=== PATIENT | female | born 1985 | race Caucasian/White ===

== ENCOUNTER 2019-05-06 05:27 | Day surgery (SDC) | payer BC ==
[2019-05-04 16:30] LABS: BASOPHILS % (AUTO) 0.6 % (0-1); EOSINOPHILS # (AUTO) 0.1 X10'3 (0-0.9); EOSINOPHILS % (AUTO) 1.4 % (0-6); LYMPHOCYTES # (AUTO) 1.4 X10'3 (1.1-4.8); MEAN CORPUSCULAR HEMOGLOBIN 31.2 PG (27.0-31.0); MEAN CORPUSCULAR HGB CONC 34.6 g/dL (33.0-36.5); MEAN CORPUSCULAR VOLUME 90.4 FL (78-98); MEAN PLATELET VOLUME 7.9 FL (7.4-10.4); MONOCYTES # (AUTO) 0.3 X10'3 (0-0.9); MONOCYTES % (AUTO) 6.6 % (2-12); NEUTROPHILS # (AUTO) 2.4 X10'3 (1.8-7.7); NEUTROPHILS % (AUTO) 57.4 % (42-75); PRE OP HEMOGLOBIN 13.8 g/dL (12.0-16.0); PRE OP PLATELET COUNT 171 X10'3 (140-440); RED BLOOD COUNT 4.43 X10'6 (4.20-5.60)
[2019-05-04 16:46] LABS: ALBUMIN 3.9 G/DL (3.4-5.0); ALBUMIN/GLOBULIN RATIO 1.3 (1.1-1.5); ALKALINE PHOSPHATASE 65 IU/L (46-116); BLOOD UREA NITROGEN 10 MG/DL (7-18); BUN/CREATININE RATIO 12.7 (6.6-38.0); CALCIUM 9.5 MG/DL (8.5-10.1); CHLORIDE 103 MMOL/L (99-107); CREATININE 0.79 MG/DL (0.40-0.90); PRE OP ALT 15 U/L (30-65); PRE OP ANION GAP 4 (8-16); PRE OP AST 8 U/L (10-37); PRE OP BILIRUB, TOTAL 0.4 MG/DL (0.0-1.0); PRE OP GLUCOSE 86 MG/DL (70-104); PRE OP POTASSIUM 4.2 MMOL/L (3.4-5.1); PRE OP SODIUM 138 MMOL/L (135-145); TOTAL CARBON DIOXIDE 30.8 MMOL/L (24-32); TOTAL PROTEIN 6.9 G/DL (6.4-8.2); eGFR 82 ML/MIN
[2019-05-04 17:03] LABS: HCG SERUM QL NEGATIVE
[~2019-05-06] VITALS: Ht 157.5 cm; Wt 73.0 kg
[2019-05-06] VITALS (8 sets, daily range): BP systolic 98–110; BP diastolic 45–64
[~2019-05-06 05:27] MED LIST: CHOL10002 PO; ESCI5TAB PO; LORA10TA65 PO
[2019-05-06] MEDS ORDERED: famotidine 20mg tablet PO ONE (05:30)
[2019-05-06] MEDS ORDERED: ceFOXitin sod/dextrose 2g/50ml 50 ML IV ONE (05:30)
[2019-05-06] MEDS ORDERED: ringers solution, lacted 1,000 ML IV SCH ×2 (05:30→08:24)
[2019-05-06] MEDS ORDERED: LIDOcaine 1% (10mg/ml) 2ml vial ONE (06:15)
[2019-05-06] MEDS ORDERED: BUPIVAcaine/PF 2.5 mg/ml (0.25%) 30ml vial ONE (06:52)
[2019-05-06] MEDS ORDERED: epiNEPHrine 1 mg/ml inj ONE (06:52)
[2019-05-06] MEDS ORDERED: fentaNYL/PF 50MCG/1 ML 2ML syringe ONE (07:31)
[2019-05-06] MEDS ORDERED: midazolam 2 mg/2 ml injection ONE (07:31)
[2019-05-06] MEDS ORDERED: rocuronium 10mg/ml inj IV ONE (07:33)
[2019-05-06] MEDS ORDERED: propofol inj 20 ML IV ONE (07:33)
[2019-05-06] MEDS ORDERED: dexamethasone sod phosphate 4mg/ml inj. ONE (07:43)
[2019-05-06] MEDS ORDERED: acetaminophen 1,000mg/100ml IV 100 ML IV ONE (07:59)
[2019-05-06] MEDS ORDERED: ketorolac trometh. 30mg/ml inj. ONE (07:59)
[2019-05-06] MEDS ORDERED: ondansetron/PF 4mg/2ml inj ONE (07:59)
[2019-05-06] MEDS ORDERED: neostigmine methylsulfate 1 MG/ML 10ml vial ONE (08:01)
[2019-05-06] MEDS ORDERED: glycopyrrolate 0.2mg/ml inj ONE (08:01)
--- NOTE | 2019-05-06 08:20 | NUR ---
Received from OR via bed, accompanied by Anesthesiologist. Report received. Initial physical assessment done and recorded.
[2019-05-06] MEDS ORDERED: ondansetron/PF 4mg/2ml inj IV PRN (08:25)
[2019-05-06] MEDS ORDERED: meperidine/PF 25mg/ml syringe IV PRN ×3 (08:25)
[2019-05-06] MEDS ORDERED: morphine 4 MG/ML inj SYRINge IV PRN ×2 (08:25)
[2019-05-06] MEDS ORDERED: proCHLORperazine 10 MG/2 ml inj IV PRN (08:25)
--- NOTE | 2019-05-06 09:30 | NUR ---
Discharged home in good condition. No complaints of pain during post op period, no pain meds given no complaints Discharge criteria met, discharge instructions given, demonstrates verbal understanding.
== END 2019-05-06 09:30 | disposition home or self-care (01) ==
LOC: PAS 05:27
PROVIDERS: ATTEND Obstetrics & Gynecology Obstetrics
DX: Z30.2 Encounter for sterilization (principal); N83.8 Other noninflammatory disorders of ovary, fallopian tube and broad ligament; F32.9 Major depressive disorder, single episode, unspecified; Z98.890 Other specified postprocedural states; Z79.899 Other long term (current) drug therapy; Z88.8 Allergy status to other drugs, medicaments and biological substances; Z91.048 Other nonmedicinal substance allergy status
CPT/HCPCS: 36415; 58670; 80053; 84703; 85025; 86885; 86900; 86901; J0131; J0171; J0694; J1100; J1885; J2250; J2405; J2704; J2710; J3010; J3490; J7120; A7000